=== PATIENT | female | born 1985 | race Caucasian/White ===

== ENCOUNTER → 2018-07-31 | Outpatient (CLI) | payer OTHER ==
--- NOTE | 2018-07-31 15:45 | RAD ---
EXAM: Pelvic sonogram. HISTORY: Pain. TECHNIQUE: Sonographic imaging of the pelvis was performed. COMPARISON: None. FINDINGS: The uterus measures 10.2 x 6.5 x 5.0 cm. The endometrial stripe measures 3.7 mm in thickness. The ovaries are normal in size and demonstrate normal blood flow. There are multiple bilateral ovarian follicles. There is a dominant left ovarian follicular cyst measuring 1.8 cm. There is no pelvic free fluid. IMPRESSION: 1. Multiple ovarian follicles with a dominant left ovarian follicular cyst measuring 1.8 cm. 2. Otherwise, unremarkable pelvic sonogram. Electronically signed by: Saranya Sams MD (07/31/2018 3:42 PM) [facility] [id number]
== END | disposition home or self-care (01) ==
LOC: US 14:12
PROVIDERS: ATTEND Obstetrics & Gynecology
DX: N83.02 Follicular cyst of left ovary (principal)
CPT/HCPCS: 76856